=== PATIENT | female | born 1960 | race African-American/Black ===

== ENCOUNTER 2017-01-27 21:23 | Emergency (ER) | payer MEDICARE, OTHER ==
[2017-01-27 21:00] LABS: BASOPHILS 0.7 %; BASOPHILS ABSOLUTE 0.05 10/3/uL (0.0-0.16); EOSINOPHILS 7.1 %; EOSINOPHILS ABSOLUTE 0.54 10/3/uL (0.0-0.53); HEMATOCRIT 29.2 % (36.0-48.0); HEMOGLOBIN 9.1 g/dL (12.0-16.0); LYMPHOCYTES 27.5 %; MEAN CORPUS HGB CONC 31.2 g/dL (32.0-36.0); MEAN CORPUSCULAR HEMOGLOB 27.6 pg (26.0-34.0); MEAN CORPUSCULAR VOLUME 88.5 fL (80-100); MEAN PLATELET VOLUME 10.2 fL (9.2-13.0); MONOCYTES 7.2 %; MONOCYTES ABSOLUTE 0.55 10/3/uL (0.21-1.20); NEUTROPHILS 57.5 %; NEUTROPHILS ABSOLUTE 4.41 10/3/uL (2.02-8.40); PLATELET COUNT 212 10/3/uL (150-400); WHITE BLOOD CELLS 7.7 10/3/uL (4.5-10.5)
[2017-01-27 21:03] LABS: MANUAL DIFF NO %
[~2017-01-27 21:23] MED LIST: ASAB PO; AT25 PO; ATARAX50B PO; COMP10B OR; COMP10B PO; COREG25 PO; DIABETA5 PO; EPOGEN SC; HUMULIN SC; INSNOV7030 SC; INSNOVR SC; IRON325 MG PO; L40 PO; LANTUSCART SC; LISINOPRIL40 MG PO; LUPRON DEPOT3.75 MG IM; NEPHRO-VITE PO; NEUR100 PO; NORV5 PO; NOVOPEN SC; PCET OR; PCET PO; PEP20 PO; PHOSLO PO; RENAGEL800 PO; RENVELA800 MG PO; SENSIPAR30 M1 PO; STOOL SOFTEN100 MG PO; ZOCOR40 PO; ZOCOR80 MG PO
[2017-01-27 21:24] LABS: A/G RATIO 0.4 (0.7-1.9); ALBUMIN 2.7 G/DL (3.5-5.0); ALKALINE PHOSPHATASE 86 U/L (45-117); BUN (BLOOD UREA NITROGEN) 55 MG/DL (6-23); CALCIUM, SERUM 8.3 MG/DL (8.5-10.4); CHLORIDE, SERUM 99 MMOL/L (96-112); CO2 (CARBON DIOXIDE) 26 MMOL/L (24-34); GFR AFRICAN AMERICAN 2 ML/MIN (>=60); GFR NON AFRICAN AMERICAN 2 ML/MIN (>=60); GLOBULIN 6.5 G/DL (2.5-4.1); GLUCOSE, SERUM 102 MG/DL (60-99); POTASSIUM, SERUM 4.2 MMOL/L (3.5-5.3); SGOT(AST) 22 U/L (5-40); SGPT(ALT) 22 U/L (5-65); SODIUM, SERUM 135 MMOL/L (135-148); T4 (THYROXINE) TOTAL 5.1 MCG/DL (4.5-12.0); TOTAL BILIRUBIN 0.4 MG/DL (0-1.2); TOTAL PROTEIN 9.2 G/DL (6.0-8.5); ULTRASENSITIVE TSH 0.937 MCIU/ML (0.358-3.740)
== END 2017-01-27 23:18 | disposition home or self-care (01) ==
LOC: ER 21:23
PROVIDERS: Emergency Medicine
DX: R21 Rash and other nonspecific skin eruption (principal); T78.49XA Other allergy, initial encounter; E11.9 Type 2 diabetes mellitus without complications
CPT/HCPCS: 80053; 83735; 84436; 84443; 85025; 96372; 99283; A9270-GY; J1200; J2930